=== PATIENT | female | born 2000 | race African-American/Black ===

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

== ENCOUNTER 2018-11-02 13:49 | Emergency (ER) | payer OTHER ==
[~2018-11-02] VITALS: Ht 160 cm; Wt 49.9 kg
[2018-11-02 13:50] VITALS: BP 115/76
[2018-11-02 14:49] LABS: BILIRUBIN NEGATIVE (NEGATIVE); BLOOD NEGATIVE (NEGATIVE); CLARITY SL CLOUDY (CLEAR); COLOR YELLOW (YELLOW); GLUCOSE NEGATIVE (NEGATIVE); KETONE NEGATIVE (NEGATIVE); LEUKO ESTERASE NEGATIVE (NEGATIVE); NITRITE NEGATIVE (NEGATIVE); PH 6.5 (5.0-9.0); UROBILINOGEN 0.2 E.U./dl (0.2-1.0)
[2018-11-02 14:57] LABS: MUCOUS 1+; RBC 0-2 rbc/hpf (0-2)
== END 2018-11-02 15:08 | disposition home or self-care (01) ==
LOC: ED 13:49
PROVIDERS: Physician Assistant
DX: Z11.3 Encounter for screening for infections with a predominantly sexual mode of transmission (principal); N89.8 Other specified noninflammatory disorders of vagina

== ENCOUNTER → 2018-11-03 | Outpatient (CLI) | payer OTHER ==
[2018-11-04 08:07] LABS: HEPATITIS B SURFACE AG Negative (Negative); HEPATITIS C VIRUS ANTIBODY <0.1 s/co (0.0-0.9)
[2018-11-06 15:11] LABS: HSV 2 IGM AB <1:10 titer (<1:10); HSV I IGM ABS <1:10 titer (<1:10)
== END | disposition home or self-care (01) ==
LOC: LAB 14:07
PROVIDERS: Pediatrics
DX: Z11.3 Encounter for screening for infections with a predominantly sexual mode of transmission (principal)

== ENCOUNTER 2019-01-10 18:32 | Emergency (ER) | payer OTHER ==
[~2019-01-10] VITALS: Ht 160 cm; Wt 49.9 kg
[2019-01-10 18:32] VITALS: BP 96/55
[2019-01-10] MEDS ORDERED: AMOXICILLIN500 M3 PO (20:52)
== END 2019-01-10 21:16 | disposition home or self-care (01) ==
LOC: ED 18:32
DX: J02.0 Streptococcal pharyngitis (principal)

== ENCOUNTER 2019-05-21 14:24 | Emergency (ER) | payer OTHER ==
[~2019-05-21] VITALS: Ht 160 cm; Wt 54.4 kg
[2019-05-21 14:24] VITALS: BP 106/64
[~2019-05-21 14:24] MED LIST changes: +AMOXICILLIN500 M3 PO
[2019-05-21 14:50] LABS: BILIRUBIN NEGATIVE (NEGATIVE); BLOOD NEGATIVE (NEGATIVE); CLARITY SL CLOUDY (CLEAR); COLOR YELLOW (YELLOW); GLUCOSE NEGATIVE (NEGATIVE); KETONE NEGATIVE (NEGATIVE); LEUKO ESTERASE NEGATIVE (NEGATIVE); NITRITE NEGATIVE (NEGATIVE); PH 7.5 (5.0-9.0); SPECIFIC GRAVITY 1.015 (1.005-1.030); UROBILINOGEN 0.2 E.U./dl (0.2-1.0)
[2019-05-21 15:07] LABS: BACTERIA TRACE; EPITHELIAL CELLS 21-30
[2019-05-22 17:10] LABS: GONOCOCCUS BY NAA Negative (Negative)
== END 2019-05-21 17:45 | disposition home or self-care (01) ==
LOC: ED 14:24
PROVIDERS: Nurse Practitioner Family
DX: R10.31 Right lower quadrant pain (principal); N94.10 Unspecified dyspareunia; Z20.2 Contact with and (suspected) exposure to infections with a predominantly sexual mode of transmission

== ENCOUNTER → 2019-10-16 | Outpatient (CLI) | payer OTHER ==
[2019-10-17 09:10] LABS: HEPATITIS B SURFACE AG Negative (Negative); HEPATITIS C VIRUS ANTIBODY <0.1 s/co (0.0-0.9)
[2019-10-19 15:10] LABS: HSV 2 IGM AB <1:10 titer (<1:10); HSV I IGM ABS <1:10 titer (<1:10)
== END | disposition home or self-care (01) ==
LOC: LAB 15:01
PROVIDERS: Pediatrics
DX: Z11.3 Encounter for screening for infections with a predominantly sexual mode of transmission (principal)

== ENCOUNTER 2019-11-01 09:56 | Emergency (ER) | payer SELFPAY ==
[~2019-11-01] VITALS: Ht 160 cm; Wt 53.5 kg
[2019-11-01 10:53] LABS: HEMATOCRIT 38.6 % (37.0-47.0); HEMOGLOBIN 13.1 g/dl (12.0-16.0); MEAN CORPUSCULAR HGB 30.9 pg (27.0-31.0); MEAN CORPUSCULAR HGB CONC 33.9 g/dl (33.0-37.0); MEAN PLATELET VOLUME 10.4 fl (9.6-12.3); PLATELET COUNT AUTOMATED 217 10*3/uL (130-400); RED BLOOD COUNT 4.24 10*6/uL (4.10-5.10); RED CELL DISTRI WIDTH 13.2 % (0-14.5); WHITE BLOOD COUNT 17.8 10*3/uL (4.8-10.8)
[2019-11-01 11:10] LABS: ALBUMIN 3.5 gm/dl (3.1-4.5); ALKALINE PHOSPHATASE 63 U/L (45-117); BUN 7 mg/dl (7-24); CHLORIDE 104 mmol/L (98-107); CREATININE 0.75 mg/dL (0.55-1.02); POTASSIUM 3.4 mmol/L (3.5-5.1); SGOT/AST 12 IU/L (3-35); SGPT/ALT 17 U/L (12-78); SODIUM 137 mmol/L (136-145)
[2019-11-01 11:17] LABS: ATYPICAL LYMPHS 1 % (0-0); TOTAL CELLS COUNTED 100 #CELLS
[2019-11-01 11:18] LABS: PLATELET SUFFICIENCY NORMAL (NORMAL)
[2019-11-01 12:39] VITALS: BP 95/49
[2019-11-01 13:31] LABS: BILIRUBIN NEGATIVE (NEGATIVE); BLOOD NEGATIVE (NEGATIVE); CLARITY CLOUDY (CLEAR); COLOR YELLOW (YELLOW); GLUCOSE NEGATIVE (NEGATIVE); KETONE 2+ (NEGATIVE); LEUKO ESTERASE NEGATIVE (NEGATIVE); NITRITE NEGATIVE (NEGATIVE); PH 6.5 (5.0-9.0); SPECIFIC GRAVITY 1.025 (1.005-1.030)
[2019-11-01] MEDS ORDERED: AUGMENTIN 875-875 MG PO (13:44)
[2019-11-01 13:52] LABS: EPITHELIAL CELLS 21-30
== END 2019-11-01 13:50 | disposition home or self-care (01) ==
LOC: ED 09:56
PROVIDERS: Nurse Practitioner Family
DX: J03.80 Acute tonsillitis due to other specified organisms (principal); B96.89 Other specified bacterial agents as the cause of diseases classified elsewhere; R11.2 Nausea with vomiting, unspecified

== ENCOUNTER 2020-09-08 14:24 | Emergency (ER) | payer BC ==
[~2020-09-08] VITALS: Ht 162.5 cm; Wt 70.3 kg
[~2020-09-08 14:24] MED LIST changes: +AUGMENTIN 875-875 MG PO
[2020-09-08 15:08] VITALS: BP 126/86
== END 2020-09-08 16:36 | disposition home or self-care (01) ==
LOC: ED 14:24
DX: S63.501A Unspecified sprain of right wrist, initial encounter (principal); F17.200 Nicotine dependence, unspecified, uncomplicated; W18.39XA Other fall on same level, initial encounter; Y93.89 Activity, other specified; Y92.89 Other specified places as the place of occurrence of the external cause; Y99.8 Other external cause status

== ENCOUNTER → 2020-09-12 | Outpatient (CLI) | payer BC | END | disposition home or self-care (01) | LOC: RAD 13:11 | PROVIDERS: ATTEND Pediatrics | DX: M79.641 Pain in right hand (principal); R60.0 Localized edema; Z91.81 History of falling ==

== ENCOUNTER → 2021-05-19 | Outpatient (CLI) | payer BC, OTHER ==
[2021-05-20 07:06] LABS: HEP B CORE AB, IGM Negative (Negative); HEPATITIS B SURFACE AG Negative (Negative); HEPATITIS C VIRUS ANTIBODY <0.1 s/co (0.0-0.9)
== END | disposition home or self-care (01) ==
LOC: LAB 16:30
PROVIDERS: ATTEND Pediatrics
DX: Z72.51 High risk heterosexual behavior (principal)

== ENCOUNTER 2022-03-15 15:10 | Emergency (ER) | payer BC, OTHER ==
[~2022-03-15] VITALS: Ht 162.5 cm; Wt 61.2 kg
[2022-03-15 15:22] VITALS: BP 104/68
[2022-03-15] MEDS ORDERED: AUGMENTIN 875-875 MG PO (16:45)
[2022-03-15 16:52] LABS: BILIRUBIN Negative (Negative); BLOOD Negative (Negative); CLARITY Turbid (Clear); COLOR Dark Yellow (Yellow); GLUCOSE Negative (Negative); KETONE 1+ (Negative); LEUKO ESTERASE Negative (Negative); NITRITE Negative (Negative); PH 6.5 (4.5-8.0); SPECIFIC GRAVITY >= 1.030 (1.001-1.030)
[2022-03-15 17:34] LABS: BACTERIA 1+; EPITHELIAL CELLS 16-20
== END 2022-03-15 17:47 | disposition home or self-care (01) ==
LOC: ED 15:10
PROVIDERS: Nurse Practitioner Family
DX: H66.92 Otitis media, unspecified, left ear (principal); Z20.822 Contact with and (suspected) exposure to COVID-19; F17.200 Nicotine dependence, unspecified, uncomplicated

== ENCOUNTER → 2023-01-17 | Outpatient (CLI) | payer BC, OTHER ==
[2023-01-17 17:54] LABS: BASO # 0.1 10*3/uL (0.0-0.1); BASO % 0.7 % (0.0-1.0); EOS # 0.1 10*3/uL (0.0-0.4); EOS % 1.3 % (1.0-4.0); LYMPH # 2.6 10*3/uL (1.3-4.4); LYMPH % 31.2 % (27.0-41.0); MEAN CELL VOLUME 92.1 fl (81.0-99.0); MEAN CORPUSCULAR HGB 30.3 pg (27.0-31.0); MEAN CORPUSCULAR HGB CONC 32.9 g/dl (33.0-37.0); MEAN PLATELET VOLUME 9.5 fl (9.6-12.3); MONO # 0.6 10*3/uL (0.1-1.0); MONO % 7.2 % (3.0-9.0); NEUT % 59.5 % (47.0-73.0); PLATELET COUNT AUTOMATED 258 10*3/uL (130-400); RED BLOOD COUNT 4.45 10*6/uL (4.10-5.10); RED CELL DISTRI WIDTH 13.2 % (0-14.5); WHITE BLOOD COUNT 8.4 10*3/uL (4.8-10.8)
[2023-01-17 18:16] LABS: ALKALINE PHOSPHATASE 40 U/L (46-116); BUN 10 mg/dl (9-23); CHLORIDE 108 mmol/L (98-107); CHOLESTEROL 161 mg/dL (<200); LDL CHOLESTEROL 87 mg/dL (9-159); POTASSIUM 3.7 mmol/L (3.4-5.1); SGPT/ALT 17 U/L (10-49); T3 UPTAKE 23.2 % (22.4-36.7); THYROID STIM HORMONE (HS) 1.408 uIU/ml (0.550-4.780); THYROXINE (T4) TOTAL 6.1 ug/dl (4.5-10.9); TRIGLYCERIDES 50 mg/dl (<150)
[2023-01-18 09:07] LABS: HBSAG Negative (Negative); HEP B CORE AB, IGM Negative (Negative); HEPATITIS C ANTIBODY Non Reactive (Non Reactive)
[2023-01-19 12:09] LABS: HSV-2 DNA Negative (Negative)
[2023-01-19 17:07] LABS: CODFISH, IGE <0.10 kU/L (Class 0); EGG WHITE, IGE <0.10 kU/L (Class 0); MILK (COW), IGE <0.10 kU/L (Class 0); PEANUT, IGE <0.10 kU/L (Class 0); SOYBEAN, IGE <0.10 kU/L (Class 0); WHEAT, IGE <0.10 kU/L (Class 0)
[2023-01-20 17:06] LABS: ALTERNARIA ALTERNATA, IGE <0.10 kU/L (Class 0); AMERICAN ELM, IGE <0.10 kU/L (Class 0); ASPERGILLUS FUMIGATU, IGE <0.10 kU/L (Class 0); BERMUDA GRASS, IGE <0.10 kU/L (Class 0); BIRCH, COMMON SILVER IGE <0.10 kU/L (Class 0); CLADOSPORIUM HERBARU, IGE <0.10 kU/L (Class 0); D FARINAE MITE <0.10 kU/L (Class 0); D PTERONYSSINUS <0.10 kU/L (Class 0); DOG DANDER, IGE <0.10 kU/L (Class 0); MAPLE LEAF SYCAMORE, IGE <0.10 kU/L (Class 0); MAPLE/BOX ELDER, IGE <0.10 kU/L (Class 0); MOUSE URINE IGE <0.10 kU/L (Class 0); PENICILLIUM CHRYSOGENUM, IGE <0.10 kU/L (Class 0); ROUGH PIGWEED, IGE <0.10 kU/L (Class 0); SHEEP SORREL (DOCK), IGE <0.10 kU/L (Class 0); SHORT RAGWEED, IGE <0.10 kU/L (Class 0); TIMOTHY, IGE <0.10 kU/L (Class 0); WALNUT TREE, IGE <0.10 kU/L (Class 0); WHITE ASH, IGE <0.10 kU/L (Class 0); WHITE MULBERRY, IGE <0.10 kU/L (Class 0); WHITE OAK, IGE <0.10 kU/L (Class 0)
== END | disposition home or self-care (01) ==
LOC: LAB 17:10
PROVIDERS: ATTEND Pediatrics
DX: T78.40XA Allergy, unspecified, initial encounter (principal); D64.9 Anemia, unspecified; E55.9 Vitamin D deficiency, unspecified; R53.83 Other fatigue; R63.6 Underweight; Z20.2 Contact with and (suspected) exposure to infections with a predominantly sexual mode of transmission; X58.XXXA Exposure to other specified factors, initial encounter

== ENCOUNTER 2024-11-07 13:04 | Emergency (ER) | payer BC, OTHER ==
[~2024-11-07] VITALS: Ht 160 cm; Wt 49.9 kg
[2024-11-07 13:13] VITALS: BP 105/71
[2024-11-07] MEDS ORDERED: CEPHALEXIN500 M1 PO (13:23)
[2024-11-07] MEDS ORDERED: Tdap Vaccine 0.5 ML SYR (Adult Vaccine) IM ONE ×2 (13:25→13:48)
== END 2024-11-07 14:34 | disposition home or self-care (01) ==
LOC: ED 13:04
DX: S41.132A Puncture wound without foreign body of left upper arm, initial encounter (principal); L03.114 Cellulitis of left upper limb; W45.8XXA Other foreign body or object entering through skin, initial encounter; Y93.89 Activity, other specified; Y92.009 Unspecified place in unspecified non-institutional (private) residence as the place of occurrence of the external cause; Y99.8 Other external cause status

== ENCOUNTER → 2025-05-29 | Outpatient (CLI) | payer OTHER ==
[~2025-05-29] MED LIST changes: +CEPHALEXIN500 M1 PO
[2025-05-29 11:33] LABS: BASO # 0.0 10*3/uL (0.0-0.1); BASO % 0.7 % (0.0-1.0); EOS # 0.2 10*3/uL (0.0-0.4); EOS % 2.7 % (1.0-4.0); MEAN CELL VOLUME 89.9 fl (81.0-99.0); MEAN CORPUSCULAR HGB 29.7 pg (27.0-31.0); MEAN PLATELET VOLUME 9.1 fl (9.6-12.3); MONO # 0.5 10*3/uL (0.1-1.0); MONO % 8.7 % (3.0-9.0); NEUT # 2.3 10*3/uL (2.3-7.9); NEUT % 38.1 % (47.0-73.0); NUCLEATED RED BLOOD CELL 0.0 % (0.0-0.0); NUCLEATED RED BLOOD CELL 0.0 10*3/uL (0.0-0.0); PLATELET COUNT AUTOMATED 274 10*3/uL (130-400); RED CELL DISTRI WIDTH 12.7 % (0-14.5)
[2025-05-29 11:58] LABS: VITAMIN D, 25-HYDROXY 28.1 ng/mL (30-100)
[2025-05-29 11:59] LABS: BUN 10 mg/dl (9-23); LDL CHOLESTEROL 105 mg/dL (9-159); SGPT/ALT 27 U/L (5-49); T3 UPTAKE 38.0 % (22.4-36.7); THYROXINE (T4) TOTAL 6.4 ug/dl (4.5-10.9)
[2025-06-03 03:06] LABS: PEANUT <0.10 kU/L (Class 0); SOYBEAN <0.10 kU/L (Class 0); WHEAT <0.10 kU/L (Class 0)
[2025-06-03 05:06] LABS: ALTERNARIA ALTERNATA, IGE <0.10 kU/L (Class 0); ASPERGILLUS FUMIGATU, IGE <0.10 kU/L (Class 0); BERMUDA GRASS <0.10 kU/L (Class 0); BIRCH, COMMON SILVER IGE <0.10 kU/L (Class 0); CLADO HERBARUM, IGE <0.10 kU/L (Class 0); D FARINAE <0.10 kU/L (Class 0); D PTERONYSSINUS <0.10 kU/L (Class 0); DOG DANDER <0.10 kU/L (Class 0); ELM, AMERICAN <0.10 kU/L (Class 0); MAPLE LEAF SYCAMORE, IGE <0.10 kU/L (Class 0); MAPLE/BOX ELDER, IGE <0.10 kU/L (Class 0); MOUSE URINE <0.10 kU/L (Class 0); PENICILLIUM CHRYSOGENUM, IGE <0.10 kU/L (Class 0); PIGWEED, COMMON <0.10 kU/L (Class 0); SHEEP SORREL (DOCK), IGE <0.10 kU/L (Class 0); TIMOTHY GRASS <0.10 kU/L (Class 0); WALNUT (POLLEN) <0.10 kU/L (Class 0); WHITE MULBERRY <0.10 kU/L (Class 0)
== END | disposition home or self-care (01) ==
LOC: LAB 10:58
PROVIDERS: ATTEND Pediatrics
DX: T78.40XA Allergy, unspecified, initial encounter (principal); D50.9 Iron deficiency anemia, unspecified; R63.6 Underweight; Z20.2 Contact with and (suspected) exposure to infections with a predominantly sexual mode of transmission; Y84.8 Other medical procedures as the cause of abnormal reaction of the patient, or of later complication, without mention of misadventure at the time of the procedure; Y92.89 Other specified places as the place of occurrence of the external cause

== ENCOUNTER 2025-09-20 17:08 | Emergency (ER) | payer OTHER ==
[~2025-09-20] VITALS: Ht 162.5 cm; Wt 45.4 kg
[2025-09-20 17:20] VITALS: BP 98/62
[2025-09-20 17:50] LABS: BASO # 0.0 10*3/uL (0.0-0.1); BASO % 0.5 % (0.0-1.0); EOS # 0.1 10*3/uL (0.0-0.4); EOS % 1.1 % (1.0-4.0); MEAN CELL VOLUME 90.3 fl (81.0-99.0); MEAN CORPUSCULAR HGB 29.6 pg (27.0-31.0); MEAN PLATELET VOLUME 9.0 fl (9.6-12.3); MONO # 0.4 10*3/uL (0.1-1.0); MONO % 9.9 % (3.0-9.0); NEUT # 2.8 10*3/uL (2.3-7.9); NEUT % 64.4 % (47.0-73.0); NUCLEATED RED BLOOD CELL 0.0 % (0.0-0.0); NUCLEATED RED BLOOD CELL 0.0 10*3/uL (0.0-0.0); PLATELET COUNT AUTOMATED 281 10*3/uL (130-400); RED CELL DISTRI WIDTH 12.6 % (0-14.5)
[2025-09-20 18:16] LABS: BUN 11 mg/dl (9-23)
== END 2025-09-20 19:20 | disposition home or self-care (01) ==
LOC: ED 17:08
PROVIDERS: Nurse Practitioner Family
DX: R59.1 Generalized enlarged lymph nodes (principal)

== ENCOUNTER 2025-10-05 22:14 | Emergency (ER) | payer OTHER ==
[~2025-10-05] VITALS: Ht 160 cm; Wt 49.9 kg
[2025-10-05 22:58] VITALS: BP 102/79
[2025-10-05] MEDS ORDERED: Sulfamethoxazole/Trimethopri 1 TAB TAB PO ONE (23:25)
[2025-10-05] MEDS ORDERED: Tdap Vaccine 0.5 ML SYR (Adult Vaccine) IM ONE (23:25)
[2025-10-05] MEDS ORDERED: SEPTDS PO (23:37)
== END 2025-10-05 23:53 | disposition home or self-care (01) ==
LOC: ED 22:14
DX: L02.214 Cutaneous abscess of groin (principal)